=== PATIENT | female | born 1990 | race Caucasian/White ===

== ENCOUNTER 2016-12-26 15:29 | Emergency (ER) | payer SELFPAY ==
[2016-12-26 15:55] VITALS: BP 114/70
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
--- NOTE | 2016-12-26 17:36 | RAD ---
Indication: 3 days LEFT shoulder pain following injury. Comparison: No relevant prior exams available on the [facility] PACS for comparison. Technique: Internal rotation AP, external rotation Grashey, scapular Y, axillary views LEFT shoulder Report: Normal acromioclavicular and glenohumeral joint alignment. Negative for fracture. Preserved joint spaces. Unremarkable soft tissue contours. IMPRESSION: Negative exam.
== END 2016-12-26 17:40 | disposition home or self-care (01) ==
LOC: UCCORT 15:29
DX: S43.402A Unspecified sprain of left shoulder joint, initial encounter (principal); S46.912A Strain of unspecified muscle, fascia and tendon at shoulder and upper arm level, left arm, initial encounter; Y04.0XXA Assault by unarmed brawl or fight, initial encounter; Y93.9 Activity, unspecified; Y92.9 Unspecified place or not applicable; Y99.9 Unspecified external cause status; D68.51 Activated protein C resistance; Z72.0 Tobacco use
CPT/HCPCS: 99213; G0463

== ENCOUNTER 2017-08-08 09:52 | Emergency (ER) | payer MEDICAID ==
[2017-08-08 10:52] VITALS: BP 107/64
--- NOTE | 2017-08-08 11:53 | UC ---
Complaint Female HPI - HPI Summary HPI Summary: has 2 days of pain and irritation on labia--some thick white vaginal discharge - History Of Current Complaint Chief Complaint: UCGU Stated Complaint: PERSONAL Time Seen by Provider: 08/08/17 11:44 Hx Obtained From: Patient Hx Last Menstrual Period: 07/09/17 ?: No Onset/Duration: Sudden Onset, Lasting Days - 2, Still Present Timing: Constant Severity Initially: Mild Severity Currently: Mild Pain Intensity: 2 Pain Scale Used: 0-10 Numeric Aggravating Factor(s): Movement, Urination Alleviating Factor(s): Nothing Associated Signs And Symptoms: Positive: Negative - "tear" on right labia minora , Vaginal Discharge Related Hx: - 1, Para - 0 (spont. AB) - Allergies/Home Medications Allergies/Adverse Reactions: Allergies Allergy/AdvReac Type Severity Reaction Status Date / Time Penicillins Allergy Intermediate HIVE Verified 08/08/17 10:53 PMH/Surg Hx/FS Hx/Imm Hx Previously Healthy: No - factor 5 liden - Surgical History Surgical History: Yes Surgery Procedure, Year, and Place: CHOLECYSTECTOMY 2009. tubes in ears- ear [place] trauma - Family History Known Family History: Positive: None - Social History Occupation: Employed Part-time Lives: With Family Alcohol Use: Occasionally Substance Use Type: None Smoking Status (MU): Heavy Every Day Tobacco Smoker Type: Cigarettes Amount Used/How Often: 1/2- 3/4 pack daily Length of Time of Smoking/Using Tobacco: since age 17 Have You Smoked in the Last Year: Yes Cessation Counseling: Patient Advised to Stop - Immunization History Most Recent Influenza Vaccination: 01-03-15 Vaccination Up to Date: Yes Review of Systems Constitutional: Negative Skin: Negative Eyes: Negative ENT: Negative Respiratory: Negative Cardiovascular: Negative Gastrointestinal: Negative Genitourinary: Negative, Vaginal/Penile Discharge, Other - right labia irratation Motor: Negative Neurovascular: Negative Musculoskeletal: Negative Neurological: Negative Psychological: Negative Is Patient Immunocompromised?: No All Other Systems Reviewed And Are Negative: Yes Physical Exam Triage Information Reviewed: Yes Appearance: Well-Appearing, No Pain Distress, Well-Nourished Vital Signs: Initial Vital Signs Temp 97.5 F 08/08/17 10:44 Pulse 82 08/08/17 10:44 Resp 18 08/08/17 10:44 BP 107/64 08/08/17 10:44 Pulse Ox 100 08/08/17 10:44 Vital Signs Reviewed: Yes Eye Exam: Normal Eyes: Positive: Conjunctiva Clear ENT Exam: Normal ENT: Positive: Normal ENT inspection, Hearing grossly normal, Uvula midline. Negative: TMs normal, Trismus, Muffled voice, Hoarse voice, Sinus tenderness Neck exam: Normal Neck: Positive: Supple, Nontender Respiratory Exam: Normal Respiratory: Positive: Chest non-tender, No respiratory distress, No accessory muscle use Cardiovascular Exam: Normal Cardiovascular: Positive: RRR, Pulses Normal, Brisk Capillary Refill Pelvic Exam: Positive: No Cerv. Motion Tender, Other - 4 mm tear proximal labia minor, and 15 mm tear right dstal labia minora. Negative: Active Bleeding Musculoskeletal Exam: Normal Musculoskeletal: Positive: Strength Intact, ROM Intact, No Edema Neurological Exam: Normal Neurological: Positive: Alert, Muscle Tone Normal Psychological Exam: Normal Skin Exam: Normal Diagnostics - Laboratory Diagnostic Studies Completed/Ordered: u preg (-), trace leukoesterace Complaint Female Dx - Course Course Of Treatment: sitz bath cool air drying, increase fluids, hsv, affirm and apptima swab, treat candidiasis presumptively follow with pcp - Differential Dx/Diagnosis Provider Diagnoses: right labia abrasion x2, vulvovaginal candidiasis Discharge - Sign-Out/Discharge Documenting (check all that apply): Discharge/Admit/Transfer - Discharge Plan Condition: Stable Disposition: HOME Prescriptions: Fluconazole 150 MG (NF) [Diflucan 150 mg (NF)] 150 mg PO ONCE #2 tab Patient Education Materials: Abrasion (ED), Sitz Bath (DC) Referrals: Mary Michelle MD [Primary Care Provider] - If Needed - Billing Disposition and Condition Condition: STABLE Disposition: HOME
--- NOTE | 2017-08-11 07:30 | UC ---
- Progress Note Progress Note: Please tell patient that results are c/w genital herpes. I have called in valtyrone for acute treatment but she should discuss bed bug exterminator treatment options with pcp as well as how to reduce transmission. Condoms should be used. Discharge - Sign-Out/Discharge Documenting (check all that apply): Post-Discharge Follow Up - Discharge Plan Condition: Stable Disposition: HOME Prescriptions: Fluconazole 150 MG (NF) [Diflucan 150 mg (NF)] 150 mg PO ONCE #2 tab Patient Education Materials: Abrasion (ED), Sitz Bath (DC) Referrals: Mary Michelle MD [Primary Care Provider] - If Needed - Billing Disposition and Condition Condition: STABLE Disposition: HOME
== END 2017-08-08 12:30 | disposition home or self-care (01) ==
LOC: UCCORT 09:52
DX: S30.814A Abrasion of vagina and vulva, initial encounter (principal); X58.XXXA Exposure to other specified factors, initial encounter; Y92.9 Unspecified place or not applicable; B37.3 Candidiasis of vulva and vagina; A60.00 Herpesviral infection of urogenital system, unspecified; Y93.9 Activity, unspecified; Z88.0 Allergy status to penicillin
CPT/HCPCS: 81003; 84702; 87086; 87480; 87491; 87510; 87529; 87591; 87661; 87798; 99212; G0463

== ENCOUNTER 2018-09-02 12:03 | Emergency (ER) | payer BC, MEDICAID ==
[2018-09-02 12:52] VITALS: BP 111/75
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
[2018-09-02 19:20] LABS: ABS Basophils 0.1 10^3/ul (0-0.2); ABS Eosinophils 0.2 10^3/ul (0-0.6); ABS Monocytes 0.6 10^3/ul (0-0.8); ABS Neutrophils 7.2 10^3/ul (1.5-7.7); Eosinophil % 1.5 %; Hematocrit 42 % (35-47); Hemoglobin 14.3 g/dL (12.0-16.0); Lymphocyte % 27.4 %; Mean Corpuscular HGB Conc 34 g/dL (31-36); Mean Corpuscular Hemoglobin 33 pg (27-31); Mean Corpuscular Volume 98 fL (80-97); Mean Platelet Volume 7.8 fL (7.4-10.4); Platelet Count 419 10^3/uL (150-450); Red Blood Count 4.31 10^6 /uL (3.70-4.87); Red Cell Distribution Width 13 % (10.5-15)
--- NOTE | 2018-09-03 07:16 | UC ---
- Progress Note Progress Note: Dr Iverson's note is reviewed. 8 days post-. sx c/w BV adn treated emopiracally for BV w/ flagyl x 7 d. cx are pending. -cbc shows minimal elevation of WBCs 11.0. This does warrant rpt in light of sx she had yesterday. She can do this with her [employer] WORKER at f/u which I do recommend. As per Dr Wilcox's note, I agree w/ low threshold for going to the ER with worsening sx. Course/Dx - Diagnoses Provider Diagnoses: Vaginitis Discharge - Sign-Out/Discharge Documenting (check all that apply): Post-Discharge Follow Up All imaging exams completed and their final reports reviewed: No Studies - Discharge Plan Condition: Stable Disposition: HOME Prescriptions: metroNIDAZOLE [Flagyl 500 MG TAB] 500 mg PO BID #14 tab Patient Education Materials: Vaginitis (ED) Referrals: Eliza Chavis, COMPLIANCE SPECIALIST [Primary Care Provider] - If Needed Additional Instructions: YOUR SYMPTOMS SEEM MORE CONSISTENT WITH VAGINITIS THAN A MORE INSIDIOUS DIAGNOSIS SUCH ENDOMETRITIS HOWEVER GIVEN THE RECENCY OF YOUR DELIVERY I AM CERTAINLY CONCERNED ABOUT THIS. SWABS WERE DONE TODAY FOR VAGINITIS WELL GC/CHLAMYDIA. CBC DRAWN. WE WILL CALL YOU WITH ANY ABNORMAL RESULTS. BASED ON YOUR DESCRIPTION OF SYMPTOMS WE WILL TREAT EMPIRICALLY FOR BACTERIAL VAGINOSIS WITH METRONIDAZOLE. TAKE TWICE DAILY FOR THE FULL 7 DAYS. LOW THRESHOLD FOR GOING TO THE EMERGENCY ROOM IF YOU DEVELOP FEVER, WORSENING ABDOMINAL PAIN, NAUSEA OR ANY OTHER CONCERNING SYMPTOMS. - Billing Disposition and Condition Condition: STABLE Disposition: Home
[2018-09-05 13:33] LABS: Neisseria gonorrhoeae (GC) RNA Negative (Negative)
[2018-09-05 13:43] LABS: Trichomonas vaginalis Result Negative (Negative)
== END 2018-09-02 14:54 | disposition home or self-care (01) ==
LOC: UCCORT 12:03
DX: N76.0 Acute vaginitis (principal); F17.210 Nicotine dependence, cigarettes, uncomplicated
CPT/HCPCS: 36415; 81003; 85025; 87086; 87480; 87491; 87510; 87591; 87661; 99212; G0463